=== PATIENT | male | born 1995 | race African-American/Black ===

== ENCOUNTER 2018-08-27 12:23 | Emergency (ER) | payer MEDICAID ==
[~2018-08-27] VITALS: Ht 180.3 cm; Wt 68.2 kg
[2018-08-27 12:45] VITALS: BP 113/67
[2018-08-27] MEDS ORDERED: ZOFRAN ODT4 MG PO (14:32)
[2018-08-27] MEDS ORDERED: ATARAX 25MG25 MG/TAB PO (14:32)
[2018-08-27] MEDS ORDERED: CEPHALEXIN500 M1 PO (14:32)
[2018-08-27] MEDS ORDERED: DOXYCYCLINE HY100 MG PO (14:44)
[2018-08-27 15:05] VITALS: PULSE 86; TEMP 97.9
== END 2018-08-27 15:05 | disposition home or self-care (01) ==
LOC: COL.ER 12:23
DX: S50.861A Insect bite (nonvenomous) of right forearm, initial encounter (principal); L03.113 Cellulitis of right upper limb; F90.9 Attention-deficit hyperactivity disorder, unspecified type; F17.210 Nicotine dependence, cigarettes, uncomplicated; Z88.8 Allergy status to other drugs, medicaments and biological substances; W57.XXXA Bitten or stung by nonvenomous insect and other nonvenomous arthropods, initial encounter
CPT/HCPCS: J0696

== ENCOUNTER 2019-03-19 17:13 | Emergency (ER) | payer MEDICAID ==
[~2019-03-19 17:13] MED LIST: ATARAX 25MG25 MG/TAB PO; CEPHALEXIN500 M1 PO; DOXYCYCLINE HY100 MG PO; ZOFRAN ODT4 MG PO
== END 2019-03-19 17:59 | disposition left against medical advice (07) ==
LOC: COL.ER 17:13
DX: Z72.9 Problem related to lifestyle, unspecified (principal)